=== PATIENT | female | born 1970 | race Caucasian/White ===

== ENCOUNTER 2025-04-19 05:28 | Day surgery (SDC) | payer MEDICARE, MEDICAID ==
[2025-04-12 12:23] LABS: MEAN PLATELET VOLUME 7.3 FL (7.4-10.4); PRE OP HEMATOCRIT 43.4 % (35.0-45.0); PRE OP HEMOGLOBIN 14.3 g/dL (12.0-16.0); PRE OP PLATELET COUNT 346 X10'3 (140-440); PRE OP WHITE BLOOD COUNT 7.5 10'3 (4.8-10.8); RED CELL DISTRIBUTION WIDTH 14.6 % (11.5-14.5)
[2025-04-12 12:32] LABS: CREATININE 0.73 MG/DL (0.40-0.90); PRE OP ALT 25 U/L (30-65); PRE OP ANION GAP 9 (8-16); PRE OP AST 15 U/L (10-37); PRE OP BILIRUB, TOTAL 1.3 MG/DL (0.0-1.0); PRE OP GLUCOSE 94 MG/DL (70-104); PRE OP POTASSIUM 3.6 MMOL/L (3.4-5.1); PRE OP SODIUM 142 MMOL/L (135-145); TOTAL CARBON DIOXIDE 26.5 MMOL/L (24-32); eGFR 82 ML/MIN
[2025-04-19] VITALS (27 sets, daily range): BP systolic 109–159; BP diastolic 14–96; PULSE 76–110; RESP 9–20; TEMP 98; O2SAT 91–96
[~2025-04-19] VITALS: Ht 157.5 cm; Wt 113.4 kg
[~2025-04-19 05:28] MED LIST: ALBU8HFA PO; APIX2.5T PO; GABA600T PO; HYDR25TA5 PO; IPRA3AMP31 NEB; LEVE500T PO
[2025-04-19] MEDS ORDERED: ringers solution, lacted 1,000 ML IV SCH ×2 (05:30→07:20)
[2025-04-19] MEDS: ceFAZolin 2gm/dext,iso 50mL 50 ML IV ONE (05:48)
[2025-04-19] MEDS: scopolamine 1MG/72H patch 1 PATCH PATCH.TD.3 TD SCH (06:21)
[2025-04-19] MEDS ORDERED: LIDOcaine 1% 30ml preserv. free vial ONE (06:37)
[2025-04-19] MEDS ORDERED: BUPIVAcaine 2.5mg/ml inj 50ml vial (contains preservative) ONE (06:37)
[2025-04-19] MEDS: albuterol 2.5 MG/3 ML nebule NEB PRN (06:38)
[2025-04-19] MEDS ORDERED: fentaNYL/PF 50MCG/1 ML 2ML syringe ONE (07:11)
[2025-04-19] MEDS ORDERED: propofol inj 20 ML IV ONE (07:12)
[2025-04-19] MEDS ORDERED: rocuronium 10mg/ml inj IV ONE (07:12)
[2025-04-19] MEDS ORDERED: midazolam 1 mg/ML 2ml injection ONE (07:12)
[2025-04-19] MEDS ORDERED: acetaminophen 1,000mg/100ml IV 100 ML IV ONE (07:12)
[2025-04-19] MEDS ORDERED: dexamethasone sod phosphate 4mg/ml inj. ONE (07:13)
[2025-04-19] MEDS ORDERED: LIDOcaine 2% (20mg/ml) 5ml vial ONE (07:13)
[2025-04-19] MEDS ORDERED: glycopyrrolate 0.2mg/ml inj ONE (07:13)
[2025-04-19] MEDS ORDERED: ondansetron/PF 4mg/2ml inj ONE (07:13)
[2025-04-19] MEDS ORDERED: fentaNYL/PF 50MCG/1 ML 2ML syringe IV PRN ×2 (07:20)
[2025-04-19] MEDS ORDERED: labetalol 20mg/4ml (5mg/ml) syringe IV PRN (07:20)
[2025-04-19] MEDS ORDERED: hydrALAZINE 20mg/ml inj. IV PRN (07:20)
[2025-04-19] MEDS ORDERED: ondansetron/PF 4mg/2ml inj IV PRN (07:20)
[2025-04-19] MEDS: BUPIVAcaine/PF 2.5 mg/ml (0.25%) 30ml vial IJ ONE (09:39)
[2025-04-19] MEDS: morphine 4 MG/ML inj SYRINge IV PRN (09:41)
--- NOTE | 2025-04-19 09:56 | OPERATIVE REPORT ---
Operative Report Providers to CC CC: JOHN SIM MD ~ Date of Procedure: Apr 19, 2025 Pre-Operative Diagnosis: Right inguinal hernia Post-Operative Diagnosis SAME as PRE-Op Right inguinal canal mass Intraabdominal adhesions Procedure Performed Robotic assisted laparoscopic enterolysis Robotic assisted laparoscopic excision of right inguinal canal mass Robotic assisted laparoscopic right inguinal hernia repair with mesh Surgeon: John Sim MD FACS Anchorer None Anesthesiologist: Beto Perera Type of Anesthesia: General Findings: Large indirect right inguinal hernia with very large fatty tumor of the right inguinal canal Associated right iliac lymphadenopathy included with the specimen Fairly significant adhesions between small bowel and the anterior abdominal and a previous umbilical mesh hernia repair Wound class I Complications None Prosthetics\Implants used: Median Dextile mesh-right Estimated Blood Loss: Minimal Specimen Removed: Right inguinal canal tumor with the attached iliac lymph nodes Description of Procedure: Patient was brought to the operating room and identified by the nursing staff and the attending physician. Patient was placed supine and general anesthesia was induced. Patient's abdomen was prepped and draped in standard sterile fashion. Preoperative antibiotics were given. Supraumbilical incision was made to allow for standard Jackson entry technique. During Jackson port placement, hernia mesh was encountered. Jackson was entered and secured, however, when the laparoscope was inserted, there was difficulty visualizing the lower abdominal midline and right lateral abdomen. There was a clear space for robotic port p lacement in the left lateral abdomen which was completed. Laparoscope was then inserted here and I was able to position an 8.5 mm port in the left epigastrium. Through that port I was able to visualize in place a port in the right lateral abdomen. The da Arely robotic arm was docked to the patient and instruments placed intra-abdominally under laparoscopic visualization. Laparoscopic enterolysis then proceeded to clear the abdominal wall and lower midline to allow access for hernia repair. Once enterolysis was completed, the left hemipelvis was examined and showed no evidence of left inguinal hernia. An indirect hernia was identified on the right side. Hernia sac was very small in size. A rent was created in the peritoneum from the median umbilical fold and carried out laterally towards the anterior superior iliac spine. Preperitoneal flap was created and carried down to the symphysis pubis. The retropubic space of Retzius was developed and the bladder swept medially. Dissection was carried out laterally until a direct hernia sac was identified. This was very small in size, but there was a very large inguinal canal fatty tumor extending deep into the canal. Hernia sac was completely dissected and reduced. The critical view of the myopectineal orifice was achieved. The fatty tumor was mobilized out of the inguinal canal. There were two apparently attached iliac lymph nodes to the fatty tumor that were included with the specimen. Dissection was carried out laterally to allow space for mesh deployment. A median, Dextile inguinal hernia mesh and suture was passed intra-abdominally. Mesh was laid in the preperitoneal space covering both indirect, direct, and potential femoral and obturator hernias. Mesh laid without wrinkles or folds. 3 tacking sutures using 0 Ethibond were used to fix the mesh at the symphysis pubis, rectus abdominis, and just anterior to the anterior superior iliac spine. The peritoneal rent was then closed with running, 2/0, absorbable locking suture. [place] were retrieved. The inguinal canal tumor and attached lymph nodes were placed in a laparoscopic retrieval bag and removed. These were passed off as specimen. Abdomen was deflated and secondary trochars removed. Fascia at the umbilical port site was closed with 0 Vicryl sutures. Skin incisions were closed with 4-0 Monocryl sutures in a subcuticular fashion. Sterile dressings were applied. Patient was awakened and taken to the postanesthesia care unit in stable condition. Counts repoted as correct: Yes JOHN SIM MD Apr 19, 2025 09:56
[2025-04-19] MEDS: midazolam 1 mg/ML 2ml injection IV ONE (10:01)
[2025-04-19] MEDS: HYDROcodone/acetaminophen 5mg/325mg tablet PO PRN (12:22)
== END 2025-04-19 13:39 | disposition home or self-care (01) ==
LOC: PAS 05:28 → EDBD 07:30 → PAS 13:39
PROVIDERS: ATTEND Surgery
DX: K40.90 Unilateral inguinal hernia, without obstruction or gangrene, not specified as recurrent (principal); D49.89 Neoplasm of unspecified behavior of other specified sites; G62.9 Polyneuropathy, unspecified; J45.909 Unspecified asthma, uncomplicated; G43.909 Migraine, unspecified, not intractable, without status migrainosus; K66.0 Peritoneal adhesions (postprocedural) (postinfection); Z88.6 Allergy status to analgesic agent; Z91.013 Allergy to seafood; I48.91 Unspecified atrial fibrillation; Z85.42 Personal history of malignant neoplasm of other parts of uterus; Z98.890 Other specified postprocedural states; Z79.899 Other long term (current) drug therapy; Z90.710 Acquired absence of both cervix and uterus
CPT/HCPCS: 36415; 38570; 49650; 80053; 82948; 85025; 88305; 88342; 93005; 94640; A4215; A4618; C1781; J0131; J1100; J2003; J2250; J2270; J2405; J2704; J2710; J3010; J3490; J7030; J7120; Z7506; Z7508; Z7512; Z7610